=== PATIENT | male | born 1945 | race Caucasian/White ===

== ENCOUNTER 2017-12-17 09:31 | Emergency (ER) | payer MEDICAID ==
[2017-12-17 10:02] VITALS: BP 146/79; PULSE 59; RESP 18; TEMP 98.8; O2SAT 98; BMI 25.8
[2017-12-17] MEDS ORDERED: Oxycodone/Acetaminophen 5/325 mg Tab PO STA (10:11)
[2017-12-17] MEDS ORDERED: Oxycodone/Acetaminophen 5/325 mg Tab ONE (10:29)
--- NOTE | 2017-12-17 11:20 | C.PDOC ---
History Of Present Illness 72 y/o male presents to ED for evaluation of pain and swelling to left foot 5th digit after banging his left foot on the toilet bowl last night. Otherwise, denies weakness, numbness, change in sensation, fever, or any other complaints at this time. No other injuries. Time Seen by Provider: 12/17/17 10:09 Chief Complaint (Nursing): Lower Extremity Problem/Injury History Per: Patient History/Exam Limitations: no limitations Onset/Duration Of Symptoms: Days (1) Current Symptoms Are (Timing): Still Present Recent travel outside of the [place]: No Additional History Per: Patient - Ankle/Foot Description Of Injury: Struck Against Object Past Medical History Reviewed: Historical Data, Nursing Documentation, Vital Signs Vital Signs: Last Vital Signs Temp 98.8 F 12/17/17 09:49 Pulse 59 L 12/17/17 09:49 Resp 18 12/17/17 09:49 BP 146/79 12/17/17 09:49 Pulse Ox 98 12/17/17 12:13 - Medical History PMH: HTN, Hypercholesterolemia Surgical History: CABG Family History: States: Unknown Family Hx - Social History Hx Alcohol Use: No Hx Substance Use: No - Immunization History Hx Tetanus Toxoid Vaccination: Yes Hx Influenza Vaccination: No Hx Pneumococcal Vaccination: No Review Of Systems Except As Marked, All Systems Reviewed And Found Negative. Constitutional: Negative for: Fever, Chills Musculoskeletal: Positive for: Foot Pain (left 5th digit) Skin: Positive for: Bruising. Negative for: Lesions Neurological: Negative for: Weakness, Numbness Physical Exam - Physical Exam Appears: Non-toxic, No Acute Distress Skin: Warm, Dry, Ecchymosis (left foot 5th digit) Head: Atraumatic, Normacephalic Eye(s): bilateral: Normal Inspection Oral Mucosa: Moist Extremity: Normal ROM (FROM of left foot and digits), Tenderness (tenderness to left foot 5th digit), Capillary Refill (less than 2 seconds), No Deformity, Swelling (left foot 5th digit) Pulses: Left Dorsalis Pedis: Normal, Right Dorsalis Pedis: Normal Neurological/Psych: Oriented x3, Normal Speech, Normal Motor, Normal Sensation ED Course And Treatment O2 Sat by Pulse Oximetry: 98 (on RA) Pulse Ox Interpretation: Normal - Other Rad Left foot 5th digit X-Ray: Interpreted by Me, Viewed By Me Interpretation: Incomplete fracture of left foot 5th digit distal phalanx. Progress Note: Left foot 5th digit Xray ordered and reviewed. Pt was given Percocet for pain. Body tape applied to affected area. Pt was given orthopedist shoe. Patient is being discharged home with instructions to follow up with point of sale associate in 1-2 days. Disposition - Disposition Referrals: Gus Williamson DPM [Medical Doctor] - Disposition: HOME/ ROUTINE Disposition Time: 11:18 Condition: STABLE Additional Instructions: FOLLOW UP WITH TANK ASSEMBLER WITHIN 2-3 DAYS. RETURN TO ed IF FEEL WORSE. Prescriptions: traMADol/Acetaminophen [Ultracet 325 MG-37.5 MG] 1 tab PO Q6 PRN #20 tab PRN Reason: Pain Instructions: Toe Fracture (DC) Forms: [facility] (Indonesian) - Clinical Impression Clinical Impression: Toe fracture - PA / SENIOR LABORATORY TECHNICIAN / Resident Statement MD/DO has reviewed & agrees with the documentation as recorded. - Scribe Statement The provider has reviewed the documentation as recorded by the Scribe KP All medical record entries made by the Scribe were at my direction and personally dictated by me. I have reviewed the chart and agree that the record accurately reflects my personal performance of the history, physical exam, medical decision making, and the department course for this patient. I have also personally directed, reviewed, and agree with the discharge instructions and disposition.
--- NOTE | 2017-12-17 12:11 | RAD ---
Date of service: 12/17/2017 PROCEDURE: Left Foot Radiographs. HISTORY: injury COMPARISON: None. FINDINGS: BONES: Questionable fracture of the medial head of the 5th proximal phalanx JOINTS: Interphalangeal joint space narrowing. SOFT TISSUES: Normal. OTHER FINDINGS: None. IMPRESSION: Questionable fracture of the medial head of the 5th proximal phalanx, best seen on the oblique view.
== END 2017-12-17 11:43 | disposition home or self-care (01) ==
LOC: C.ER 09:31
DX: S92.532A Displaced fracture of distal phalanx of left lesser toe(s), initial encounter for closed fracture (principal); W22.8XXA Striking against or struck by other objects, initial encounter